=== PATIENT | male | born 1950 | race Caucasian/White ===

== ENCOUNTER 2023-09-11 12:00 | Outpatient (AMB) | payer BC, SELFPAY ==
--- NOTE | 2023-09-11 10:38 | HO.NEPHOV ---
HPI HPI Comments History of Present Illness Details 73-year-old man with a history of cirrhosis due to alcohol, diabetes mellitus and coronary disease was recently seen in the emergency room at [facility] for generalized weakness. Prior to stay in the hospital he had decreased appetite and poor p.o. intake for almost 4 days. He had fever and was given few doses of ibuprofen. When he was seen in the emergency room he had a serum creatinine of 1.4 mg/dL which was higher than his baseline of 0.9 mg/dL. All other tests were normal. He tested negative for COVID-19. He was given IV fluids and sent home. Subsequently creatinine increased to 1.5 mg/dL on 09/05/2023. Yesterday creatinine was 1.2 mg/dL. He has been referred for further evaluation renal insufficiency. He is to drink alcohol heavily. He continues to drink alcohol but usually 1 or maybe 2 drinks. He prefers Brett with Coke He is not on any Brett inhibitors. According to the family he has had relatively low blood pressure. And he also feels fatigued when he tries to walk. Sometimes he gets lightheaded when he has tries to stand up and walk. No syncopal episodes. For the last few days appetite is improved. No nausea or vomiting. No diarrhea. No shortness of breath. No palpitations. No edema. No urinary symptoms. No hematuria. [facility] Medical History Hypertension Heart disease Diabetes Abnormal colonoscopy Encounter for colonoscopy following colon polyp removal Surgical History History of cataract removal with insertion of prosthetic lens S/P vascular bypass Family History Mother No problems noted. Father Heart disease Vital Signs 09/11/23 12:04 Height 5 ft 11.5 in Weight 203 lb BMI 27.9 BP 120/68 Blood Pressure Location Lt brachial Position Sitting Pulse 65 Pulse Source Pulse Oximeter Pulse Oximetry (%) 96 Oxygen Delivery Method Room Air Physical Exam Vital Signs: Last Vital Signs Pulse 65 09/11/23 12:04 BP 120/68 09/11/23 12:04 Pulse Ox 96 09/11/23 12:04 Oxygen Delivery Method Room Air 09/11/23 12:04 BMI result Body Mass Index 27.9 Repeat blood pressure was 100/60. Sitting. Standing blood pressure was 100/60. Asymptomatic. Const General: comfortable Nutritional Appearance: well nourished Orientation/consciousness: patient oriented x3 HEENT Head: No normal to inspection Mouth: moist mucous membranes Neck Neck: Yes supple and Yes no JVD Resp Auscultation: clear to auscultation bilaterally, no rales and rub present Cardio Jugular venous distension: no JVD Palpation: no palpable S3 and no palpable S4 Heart sounds: no rubs GI Palpation (GI): Soft to palpation and nontender Percussion: No Fluid wave present General: Yes no CVA tenderness Back/Spine/Pelvis Back: no CVA tenderness Skin General skin exam: no rashes or lesions noted Neuro Other: Forgetful General: patient oriented x3 Extrem General: Yes no pedal edema and No clubbing Assessment & Plan Assessment & Plan (1) MARIBELL (acute kidney injury): Code(s): N17.9 - Acute kidney failure, unspecified Plan: MARIBELL was mostly clear due to hypoperfusion from significant volume depletion and hypotension. No significant proteinuria Glomerulonephritis or obstructive uropathy seem less likely. Renal function is slowly improving. Recommend to increase p.o. fluid intake and salt intake. Keep intake more than the output. Continue to avoid nephrotoxic agents including NSAIDs. Recheck renal panel in the next 7 days. If there is no significant improvement in the creatinine I will obtain a renal ultrasonogram. (2) Hypotension: Code(s): I95.9 - Hypotension, unspecified Plan: Hypotension in the setting of cirrhosis. He probably has peripheral vascular dilatation. I will check a serum cortisol levels and if they are normal I would consider adding midodrine to elevate his blood pressure. The fatigue is experiencing is most likely related to hypotension. (3) Cirrhosis: Code(s): K74.60 - Unspecified cirrhosis of liver Plan: Discussed up standing from alcohol. Orders: Orders Blood Urea Nitrogen Today N17.9 - Acute kidney failure, unspecified Electrolytes Today N17.9 - Acute kidney failure, unspecified Creatinine Today N17.9 - Acute kidney failure, unspecified Calcium Today N17.9 - Acute kidney failure, unspecified Cortisol Random Today N17.9 - Acute kidney failure, unspecified Coding Level of Care Code New Pt Level 5 (86079) Diagnoses MARIBELL (acute kidney injury) N17.9 Hypotension I95.9 Cirrhosis K74.60 Results Reviewed Results Reviewed: Hemoglobin 13.7. Platelets 292 K Sodium 137 potassium 4.2 CO2 27. BUN 11 creatinine 1.2. Obtain phosphorus 241 serum albumin 3.3 Urine microalbumin creatinine ratio of 59 Nephrology Results: No Data to Display
[2023-09-11 12:04] VITALS: BP 120/68; PULSE 65; O2SAT 96; BMI 27.9
== END 2023-09-11 12:35 | disposition home or self-care (01) ==
LOC: HO.HKAS 12:00
PROVIDERS: PCP Internal Medicine; Visit Provider Internal Medicine Hypertension Specialist
DX: N17.8 Other acute kidney failure (principal); I95.89 Other hypotension; K70.30 Alcoholic cirrhosis of liver without ascites; F10.988 Alcohol use, unspecified with other alcohol-induced disorder
CPT/HCPCS: 99204

== ENCOUNTER → 2023-09-11 12:00 | Outpatient (BNVA) | payer BC, SELFPAY | PROVIDERS: PCP Internal Medicine; Visit Provider Internal Medicine Hypertension Specialist ==

== ENCOUNTER 2023-09-18 11:53 | Outpatient (AMB) | payer BC, SELFPAY ==
[2023-09-18 12:02] VITALS: BP 104/62; PULSE 73; O2SAT 95; BMI 29.5
--- NOTE | 2023-09-18 12:02 | HO.NEPHOV_ITS ---
HPI HPI Comments History of Present Illness Details 73-year-old man with a history of cirrho sis due to alcohol, diabetes mellitus and coronary disease was recently seen in the emergency room at [facility] for generalized weakness. Prior to stay in the hospital he had decreased appetite and poor p.o. intake for almost 4 days. He had fever and was given few doses of ibuprofen. When he was seen in the emergency room he had a serum creatinine of 1.4 mg/dL which was higher than his baseline of 0.9 mg/dL. All other tests were normal. He tested negative for COVID-19. He was given IV fluids and sent home. Subsequently creatinine increased to 1.5 mg/dL on 09/05/2023. Yesterday creatinine was 1.2 mg/dL. He has been referred for further evaluation renal insufficiency. He is to drink alcohol heavily. He continues to drink alcohol but usually 1 or maybe 2 drinks. He prefers Brett with Coke He is not on any Brett inhibitors. According to the family he has had relatively low blood pressure. And he also feels fatigued when he tries to walk. Sometimes he gets lightheaded when he has tries to stand up and walk. No syncopal episodes. For the last few days appetite is improved. No nausea or vomiting. No diarrhea. No shortness of breath. No palpitations. No edema. No urinary symptoms. No hematuria. 09/18/23 Feels better but still feels weak. [facility] Medical History Hypertension Heart disease Diabetes Abnormal colonoscopy Encounter for colonoscopy following colon polyp removal Surgical History History of cataract removal with insertion of prosthetic lens S/P vascular bypass Family History Mother No problems noted. Father Heart disease Vital Signs 09/18/23 12:02 Height 5 ft 11.5 in Weight 214 lb 6 oz BMI 29.5 BP 104/62 Blood Pressure Location Lt brachial Position Sitting Pulse 73 Pulse Source Pulse Oximeter Pulse Oximetry (%) 95 Oxygen Delivery Method Room Air Physical Exam Vital Signs: Last Vital Signs Pulse 73 09/18/23 12:02 BP 104/62 09/18/23 12:02 Pulse Ox 95 09/18/23 12:02 Oxygen Delivery Method Room Air 09/18/23 12:02 BMI result Body Mass Index 29.5 Repeat blood pressure was 100/60. Sitting. Standing blood pressure was 100/60. Asymptomatic. Const General: comfortable Nutritional Appearance: well nourished Orientation/consciousness: patient oriented x3 HEENT Head: No normal to inspection Mouth: moist mucous membranes Neck Neck: Yes supple and Yes no JVD Resp Auscultation: clear to auscultation bilaterally, no rales and rub present Cardio Jugular venous distension: no JVD Palpation: no palpable S3 and no palpable S4 Heart sounds: no rubs GI Palpation (GI): Soft to palpation and nontender Percussion: No Fluid wave present General: Yes no CVA tenderness Back/Spine/Pelvis Back: no CVA tenderness Skin General skin exam: no rashes or lesions noted Neuro Other: Forgetful General: patient oriented x3 Extrem General: Yes no pedal edema and No clubbing Assessment & Plan Assessment & Plan (1) MARIBELL (acute kidney injury): Code(s): N17.9 - Acute kidney failure, unspecified Plan: MARIBELL was mostly clear due to hypoperfusion from significant volume depletion and hypotension. No significant proteinuria Glomerulonephritis or obstructive uropathy seem less likely based on bland urine findings. Renal function is slowly improving and back to baseline. Recommend to increase p.o. fluid intake and salt intake. Keep intake more than the output. Continue to avoid nephrotoxic agents including NSAIDs. (2) Hypotension: Code(s): I95.9 - Hypotension, unspecified Plan: Hypotension in the setting of cirrhosis. He probably has peripheral vasodilatation. serum cortisol levels is normal If he has orthostatic change, would consider adding midodrine to elevate his blood pressure. (3) Cirrhosis: Code(s): K74.60 - Unspecified cirrhosis of liver Plan: Discussed avoiding alcohol. Coding Level of Care Code Est Pt Level 4 (17658) Diagnoses MARIBELL (acute kidney injury) N17.9 Hypotension I95.9 Cirrhosis K74.60 Results Reviewed Nephrology Results: No Data to Display
== END 2023-09-18 12:14 | disposition home or self-care (01) ==
PROVIDERS: PCP Internal Medicine; Visit Provider Internal Medicine Hypertension Specialist
DX: N17.9 Acute kidney failure, unspecified (principal); I95.9 Hypotension, unspecified; K74.60 Unspecified cirrhosis of liver
CPT/HCPCS: 99214

== ENCOUNTER → 2023-09-18 11:53 | Outpatient (BNVA) | payer BC, SELFPAY | PROVIDERS: PCP Internal Medicine; Visit Provider Internal Medicine Hypertension Specialist ==

== ENCOUNTER 2024-01-15 11:22 | Outpatient (AMB) | payer BC, SELFPAY ==
--- NOTE | 2024-01-15 11:22 | HO.NEPHOV ---
HPI HPI Comments History of Present Illness Details 73-year-old man with a history of cirrhosis due to alcohol, diabetes mellitus and coronary disease was recently seen in the emergency room at [facility] for generalized weakness. Prior to stay in the hospital he had decreased appetite and poor p.o. intake for almost 4 days. He had fever and was given few doses of ibuprofen. When he was seen in the emergency room he had a serum creatinine of 1.4 mg/dL which was higher than his baseline of 0.9 mg/dL. All other tests were normal. He tested negative for COVID-19. He was given IV fluids and sent home. Subsequently creatinine increased to 1.5 mg/dL on 09/05/2023. Yesterday creatinine was 1.2 mg/dL. He has been referred for further evaluation renal insufficiency. He is to drink alcohol heavily. He continues to drink alcohol but usually 1 or maybe 2 drinks. He prefers Brett with Coke He is not on any Brett inhibitors. According to the family he has had relatively low blood pressure. And he also feels fatigued when he tries to walk. Sometimes he gets lightheaded when he has tries to stand up and walk. No syncopal episodes. For the last few days appetite is improved. No nausea or vomiting. No diarrhea. No shortness of breath. No palpitations. No edema. No urinary symptoms. No hematuria. 09/18/23 Feels better but still feels weak. 01/15/2024. Recently there has been a bump in serum creatinine. He has been started on naltrexone few weeks ago. Continues to feel weak and sleepy. Blood pressure remains low [facility] Medical History Hypertension Heart disease Diabetes Abnormal colonoscopy Encounter for colonoscopy following colon polyp removal Surgical History History of cataract removal with insertion of prosthetic lens S/P vascular bypass Family History Mother No problems noted. Father Heart disease Vital Signs 01/15/24 11:23 01/15/24 11:40 Height 5 ft 11.5 in Weight 183 lb BMI 25.2 BP 106/64 80/60 L Blood Pressure Location Lt brachial Lt brachial Position Sitting Standing Pulse 86 Pulse Source Pulse Oximeter Pulse Oximetry (%) 97 Oxygen Delivery Method Room Air Physical Exam Vital Signs: Last Vital Signs Pulse 86 01/15/24 11:23 BP 80/60 L 01/15/24 11:40 Pulse Ox 97 01/15/24 11:23 Oxygen Delivery Method Room Air 01/15/24 11:23 BMI result Body Mass Index 25.2 Repeat blood pressure was 100/60. Sitting. Standing blood pressure was 100/60. Asymptomatic. Const General: comfortable Nutritional Appearance: well nourished Orientation/consciousness: patient oriented x3 HEENT Head: No normal to inspection Mouth: moist mucous membranes Neck Neck: Yes supple and Yes no JVD Resp Auscultation: clear to auscultation bilaterally, no rales and rub present Cardio Jugular venous distension: no JVD Palpation: no palpable S3 and no palpable S4 Heart sounds: no rubs GI Palpation (GI): Soft to palpation and nontender Percussion: No Fluid wave present General: Yes no CVA tenderness Back/Spine/Pelvis Back: no CVA tenderness Skin General skin exam: no rashes or lesions noted Neuro Other: Forgetful General: patient oriented x3 Extrem General: Yes no pedal edema and No clubbing Assessment & Plan Assessment & Plan (1) MARIBELL (acute kidney injury): Code(s): N17.9 - Acute kidney failure, unspecified Plan: MARIBELL was mostly due to hypoperfusion from significant volume depletion and hypotension. No significant proteinuria Glomerulonephritis or obstructive uropathy seem less likely based on bland urine findings. Recommend to increase p.o. fluid intake and salt intake. Keep intake more than the output. Continue to avoid nephrotoxic agents including NSAIDs. We will add midodrine to optimize blood pressure and improve renal perfusion. (2) Hypotension: Code(s): I95.9 - Hypotension, unspecified Plan: Hypotension in the setting of cirrhosis. He probably has peripheral vasodilatation. serum cortisol levels is normal Continues to have orthostatic change, I am adding midodrine 2.5 mg to elevate his blood pressure. We will titrate the dose as needed. He will benefit from GUZMAN stockings and had an elevation (3) Cirrhosis: Code(s): K74.60 - Unspecified cirrhosis of liver Plan: Currently off alcohol. Keep spironolactone and furosemide Orders: Orders Basic Metabolic Panel 3 Weeks I95.9 - Hypotension, unspecified, N17.9 - Acute kidney failure, unspecified Medications: New midodrine 2.5 mg PO DAILY 30 tabs 3RF Coding Level of Care Code Est Pt Level 4 (66169) Diagnoses MARIBELL (acute kidney injury) N17.9 Hypotension I95.9 Cirrhosis K74.60 Results Reviewed Results Reviewed: Labs reviewed Nephrology Results: No Data to Display
[2024-01-15 11:23] VITALS: BP 106/64; PULSE 86; O2SAT 97; BMI 25.2
[2024-01-15 11:40] VITALS: BP 80/60
== END 2024-01-15 11:48 | disposition home or self-care (01) ==
PROVIDERS: PCP Internal Medicine; Visit Provider Internal Medicine Hypertension Specialist
DX: N17.9 Acute kidney failure, unspecified (principal); I95.9 Hypotension, unspecified; K74.60 Unspecified cirrhosis of liver
CPT/HCPCS: 99214

== ENCOUNTER → 2024-01-15 11:22 | Outpatient (BNVA) | payer BC, SELFPAY | PROVIDERS: PCP Internal Medicine; Visit Provider Internal Medicine Hypertension Specialist ==

== ENCOUNTER 2024-03-18 11:18 | Outpatient (AMB) | payer BC, SELFPAY ==
[2024-03-18 11:22] VITALS: BP 104/60; PULSE 94; O2SAT 96; BMI 26.0
--- NOTE | 2024-03-18 11:22 | HO.NEPHOV_ITS ---
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 Accompanied by: Spouse Allergies No Known Allergies Allergy (Verified 03/18/24 11:23) Medication List - Last Reconciled 03/18/24 by Perez Montero MD ascorbic acid (vitamin C) 100 mg PO DAILY aspirin 81 mg PO DAILY cholecalciferol (vitamin D3) 25 mcg PO DAILY empagliflozin 10 mg PO DAILY ferrous sulfate 324 mg PO DAILY furosemide 20 mg PO DAILY metformin 1,000 mg PO BID midodrine 2.5 mg PO DAILY mufuggrnnzsz-ztlxrlec-gchbep 1 tab PO DAILY naltrexone 50 mg PO DAILY pantoprazole 40 mg PO DAILY rosuvastatin mg PO DAILY spironolactone 50 mg PO DAILY thiamine HCl (vitamin B1) 100 mg PO DAILY vitamins A,C,Q-zuxf-tarbkx 2,148 mcg-113 mg-45 mg-17.4mg (PreserVision AREDS) 2 tabs PO ONCE HPI Comments Details: 73-year-old man with a history of cirrhosis due to alcohol, diabetes mellitus and coronary disease was recently seen in the emergency room at [facility] for generalized weakness. Prior to stay in the hospital he had decreased appetite and poor p.o. intake for almost 4 days. He had fever and was given few doses of ibuprofen. When he was seen in the emergency room he had a serum creatinine of 1.4 mg/dL which was higher than his baseline of 0.9 mg/dL. All other tests were normal. He tested negative for COVID-19. He was given IV fluids and sent home. Subsequently creatinine increased to 1.5 mg/dL on 09/05/2023. Yesterday creatinine was 1.2 mg/dL. He has been referred for further evaluation renal insufficiency. He is to drink alcohol heavily. He continues to drink alcohol but usually 1 or maybe 2 drinks. He prefers Brett with Coke He is not on any Brett inhibitors. According to the family he has had relatively low blood pressure. And he also feels fatigued when he tries to walk. Sometimes he gets lightheaded when he has tries to stand up and walk. No syncopal episodes. For the last few days appetite is improved. No nausea or vomiting. No diarrhea. No shortness of breath. No palpitations. No edema. No urinary symptoms. No hematuria. 09/18/23 Feels better but still feels weak. 01/15/2024. Recently there has been a bump in serum creatinine. He has been started on naltrexone few weeks ago. Continues to feel weak and sleepy. Blood pressure remains low 03/18/24 . Recently ran out of spironolactone for almost 2 weeks. He is started taking spironolactone again. In the meantimee has gained few lb. He is scheduled to have a paracenesis. He is still on midodrine which seems to be helping. No specific complaints today: [facility] Medical History Hypertension Heart disease Diabetes Abnormal colonoscopy Encounter for colonoscopy following colon polyp removal Surgical History History of cataract removal with insertion of prosthetic lens S/P vascular bypass Family History Mother No problems noted. Father Heart disease Physical Exam Vital Signs: Last Vital Signs Pulse 94 03/18/24 11:22 BP 104/60 03/18/24 11:22 Pulse Ox 96 03/18/24 11:22 Oxygen Delivery Method Room Air 03/18/24 11:22 BMI result Body Mass Index 26.0 Repeat blood pressure was 100/60. Sitting. Standing blood pressure was 100/60. Asymptomatic. Const General: comfortable Nutritional Appearance: well nourished Orientation/consciousness: patient oriented x3 HEENT Head: No normal to inspection Mouth: moist mucous membranes Neck Neck: Yes supple and Yes no JVD Resp Auscultation: clear to auscultation bilaterally and no rales Cardio Jugular venous distension: no JVD Palpation: no palpable S3 and no palpable S4 Heart sounds: no rubs GI Inspection: Yes other (Umbilical hernia present fully reducible nontender.) Palpation (GI): Soft to palpation, nontender and Ascites present Percussion: No Fluid wave present General: Yes no CVA tenderness Back/Spine/Pelvis Back: no CVA tenderness Skin General skin exam: no rashes or lesions noted Neuro Other: Forgetful General: patient oriented x3 Extrem General: Yes no pedal edema and No clubbing Results Reviewed Results Reviewed: 03/05/2024. Serum creatinine 1.2 serum lytes normal Nephrology Results: No Data to Display Assessment & Plan Assessment & Plan (1) MARIBELL (acute kidney injury): Code(s): N17.9 - Acute kidney failure, unspecified Category: Medical Plan: Due To hypoperfusion MARIBELL has resolved. Creatinine is backo 1.2. (2) Hypotension: Code(s): I95.9 - Hypotension, unspecified Category: Medical Plan: Hypotension in the setting of cirrhosis. He probably has peripheral vasodilatation. serum cortisol levels is normal Continues to have orthostatic change, I shall continue midodrine 2.5 mg to elevate his blood pressure. We will titrate the dose as needed. He will benefit from GUZMAN stockings and had an elevation (3) Cirrhosis: Code(s): K74.60 - Unspecified cirrhosis of liver Category: Medical Plan: Currently off alcohol. Keep spironolactone and furosemide Orders: Orders Basic Metabolic Panel 6 Months I95.9 - Hypotension, unspecified, K74.60 - Unspecified cirrhosis of liver Coding Level of Care Code Est Pt Level 4 (46595) Diagnoses MARIBELL (acute kidney injury) N17.9 Hypotension I95.9 Cirrhosis K74.60
== END 2024-03-18 11:37 | disposition home or self-care (01) ==
PROVIDERS: PCP Internal Medicine; Visit Provider Internal Medicine Hypertension Specialist
DX: N17.9 Acute kidney failure, unspecified (principal); I95.9 Hypotension, unspecified; K74.60 Unspecified cirrhosis of liver
CPT/HCPCS: 99214

== ENCOUNTER → 2024-03-18 11:18 | Outpatient (BNVA) | payer BC, SELFPAY | PROVIDERS: PCP Internal Medicine; Visit Provider Internal Medicine Hypertension Specialist ==

== ENCOUNTER 2024-09-16 08:38 | Outpatient (AMB) | payer BC, SELFPAY ==
[2024-09-16 08:44] VITALS: BP 108/60; PULSE 93; O2SAT 98; BMI 24.3
--- NOTE | 2024-09-16 08:44 | HO.NEPHOV_ITS ---
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 Accompanied by: Spouse Allergies No Known Allergies Allergy (Verified 09/16/24 08:47) Medication List - Last Reconciled 09/16/24 by Perez Montero MD aspirin 81 mg PO DAILY cholecalciferol (vitamin D3) 25 mcg PO DAILY empagliflozin 10 mg PO DAILY ferrous sulfate 324 mg PO DAILY furosemide 20 mg PO DAILY metformin 1,000 mg PO BID midodrine 10 mg PO TID gpjmumizmvpu-prxxretl-pnphwn 1 tab PO DAILY ondansetron 4 mg PO BID PRN pantoprazole 40 mg PO DAILY rosuvastatin mg PO DAILY spironolactone 50 mg PO DAILY vitamins A,C,G-jxpd-vqjitg 2,148 mcg-113 mg-45 mg-17.4mg (PreserVision AREDS) 2 tabs PO ONCE HPI Comments Details: 73-year-old man with a history of cirrhosis due to alcohol, diabetes mellitus and coronary disease was recently seen in the emergency room at [facility] for generalized weakness. Prior to stay in the hospital he had decreased appetite and poor p.o. intake for almost 4 days. He had fever and was given few doses of ibuprofen. When he was seen in the emergency room he had a serum creatinine of 1.4 mg/dL which was higher than his baseline of 0.9 mg/dL. All other tests were normal. He tested negative for COVID-19. He was given IV fluids and sent home. Subsequently creatinine increased to 1.5 mg/dL on 09/05/2023. Yesterday creatinine was 1.2 mg/dL. He has been referred for further evaluation renal insufficiency. He is to drink alcohol heavily. He continues to drink alcohol but usually 1 or maybe 2 drinks. He prefers Brett with Coke He is not on any Brett inhibitors. According to the family he has had relatively low blood pressure. And he also f eels fatigued when he tries to walk. Sometimes he gets lightheaded when he has tries to stand up and walk. No syncopal episodes. For the last few days appetite is improved. No nausea or vomiting. No diarrhea. No shortness of breath. No palpitations. No edema. No urinary symptoms. No hematuria. 09/18/23 Feels better but still feels weak. 01/15/2024. Recently there has been a bump in serum creatinine. He has been started on naltrexone few weeks ago. Continues to feel weak and sleepy. Blood pressure remains low 03/18/24;Recently ran out of spironolactone for almost 2 weeks. He is started taking spironolactone again. In the meantimee has gained few lb. He is scheduled to have a paracenesis. He is still on midodrine which seems to be helping. No specific complaints today: 09/16/24 Had paracenthesis. Back on Lasix s/p Endoscopy - No varices reported. Stopped drinking alcohol 2 months ago! [facility] Medical History Hypertension Heart disease Diabetes Abnormal colonoscopy Encounter for colonoscopy following colon polyp removal Surgical History History of cataract removal with insertion of prosthetic lens S/P vascular bypass Family History Mother No problems noted. Father Heart disease Physical Exam Vital Signs: Last Vital Signs Pulse 93 09/16/24 08:44 BP 108/60 09/16/24 08:44 Pulse Ox 98 09/16/24 08:44 Oxygen Delivery Method Room Air 09/16/24 08:44 BMI result Body Mass Index 24.3 Comfortable Neck supple no JVD. Lungs entry equal no rales. Heart S1-S2 heard no gallop or rub. Abdomen soft ;Distended; Fluid thrill + Umbilical hernia- reducible Neuro alert awake oriented. No asterixis. Extremities trace edema. Results Reviewed Results Reviewed: 03/05/2024. Serum creatinine 1.2 serum lytes normal 09/08/24 Cr 1.32 Nephrology Results: No Data to Display Assessment & Plan Assessment & Plan (1) MARIBELL (acute kidney injury): Code(s): N17.9 - Acute kidney failure, unspecified Category: Medical Plan: Due To hypoperfusion MARIBELL has resolved. Creatinine is back to 1.2 to 1.3 (2) Hypotension: Code(s): I95.9 - Hypotension, unspecified Category: Medical Plan: Hypotension in the setting of cirrhosis. He probably has peripheral vasodilatation. Keep Midodrine serum cortisol levels is normal Continues to have orthostatic change, I shall continue midodrine 2.5 mg to elevate his blood pressure. We will titrate the dose as needed. He will benefit from GUZMAN stockings and had an elevation (3) Cirrhosis: Code(s): K74.60 - Unspecified cirrhosis of liver Category: Medical Plan: Currently off alcohol. Keep spironolactone and furosemide Paracenthesis as needed Orders: Orders Comprehensive Met. Panel 5 Months K74.60 - Unspecified cirrhosis of liver, N17.9 - Acute kidney failure, unspecified Complete Blood Count no Diff 5 Months K74.60 - Unspecified cirrhosis of liver, N17.9 - Acute kidney failure, unspecified Coding Level of Care Code Est Pt Level 4 (75409) Diagnoses MARIBELL (acute kidney injury) N17.9 Hypotension I95.9 Cirrhosis K74.60
== END 2024-09-16 09:04 | disposition home or self-care (01) ==
PROVIDERS: PCP Internal Medicine; Visit Provider Internal Medicine Hypertension Specialist
DX: N17.9 Acute kidney failure, unspecified (principal); I95.9 Hypotension, unspecified; K74.60 Unspecified cirrhosis of liver
CPT/HCPCS: 99214

== ENCOUNTER → 2024-09-16 08:38 | Outpatient (BNVA) | payer BC, SELFPAY | PROVIDERS: PCP Internal Medicine; Visit Provider Internal Medicine Hypertension Specialist ==

== ENCOUNTER 2025-03-03 08:49 | Outpatient (AMB) | payer BC, SELFPAY ==
[2025-03-03 08:53] VITALS: BP 96/52; PULSE 83; O2SAT 96; BMI 23.4
--- NOTE | 2025-03-03 08:53 | HO.NEPHOV_ITS ---
Vital Signs 03/03/25 08:53 Height 5 ft 11.5 in Weight 170 lb BMI 23.4 BP 96/52 L Blood Pressure Location Lt brachial Position Sitting Pulse 83 Pulse Source Pulse Oximeter Pulse Oximetry (%) 96 Oxygen Delivery Method Room Air Intake Visit Reasons: May follow up w/labs [employer] Operator Required: No Accompanied by: Spouse Allergies No Known Allergies Allergy (Verified 03/03/25 08:56) Medication List - Last Reconciled 03/03/25 by Perez Montero MD aspirin 81 mg PO DAILY cholecalciferol (vitamin D3) 25 mcg PO DAILY empagliflozin (Jardiance) 25 mg PO DAILY ferrous sulfate 324 mg PO DAILY furosemide 20 mg PO DAILY metformin 1,000 mg PO BID midodrine 10 mg PO TID mkgqohraiavd-ijievvue-lxrqgu 1 tab PO DAILY ondansetron 4 mg PO BID PRN pantoprazole 40 mg PO DAILY rosuvastatin mg PO DAILY spironolactone 50 mg PO BID vitamins A,C,I-nfjq-knenun 2,148 mcg-113 mg-45 mg-17.4mg (PreserVision AREDS) 2 tabs PO ONCE HPI Comments Details: Elderly man with a history of cirrhosis due to alcohol, diabetes mellitus and coronary disease was recently seen in the emergency room at [facility] for generalized weakness. Prior to stay in the hospital he had decreased appetite and poor p.o. intake for almost 4 days. He had fever and was given few doses of ibuprofen. When he was seen in the emergency room he had a serum creatinine of 1.4 mg/dL which was higher than his baseline of 0.9 mg/dL. All other tests were normal. He tested negative for COVID-19. He was given IV fluids and sent home. Subsequently creatinine increased to 1.5 mg/dL on 09/05/2023. Yesterday creatinine was 1.2 mg/dL. He has been referred for further evaluation renal insufficiency. He is to drink alcohol heavily. He continues to drink alcohol but usually 1 or maybe 2 drinks. He prefers Brett with Coke He is not on any Brett inhibitors. According to the family he has had relatively low blood pressure. And he also feels fatigued when he tries to walk. Sometimes he gets lightheaded when he has tries to stand up and walk. No syncopal episodes. For the last few days appetite is improved. No nausea or vomiting. No diarrhea. No shortness of breath. No palpitations. No edema. No urinary symptoms. No hematuria. 09/18/23 Feels better but still feels weak. 01/15/2024. Recently there has been a bump in serum creatinine. He has been started on naltrexone few weeks ago. Continues to feel weak and sleepy. Blood pressure remains low 03/18/24;Recently ran out of spironolactone for almost 2 weeks. He is started taking spironolactone again. In the meantimee has gained few lb. He is scheduled to have a paracenesis. He is still on midodrine which seems to be helping. No specific complaints today: 09/16/24 Had paracenthesis. Back on Lasix s/p Endoscopy - No varices reported. Stopped drinking alcohol 2 months ago! 03/03/25 75-year-old male presenting with concerns related to recovery from recent hernia surgery and persistent tiredness linked to anemia. Notably, he underwent a surgical procedure in December to address a bowel obstruction caused by a large hernia, and since then, symptoms of fatigue have been marked. Lab results from January indicated some improvement in hemoglobin levels, although recent tests show a significant drop, likely impacting his energy levels. Anemia appears to be primarily due to low iron levels, and there is an existing concern about potential impacts from his surgery and the need for continued management. Furthermore, there is a history of kidney impairment evident from variances in creatinine levels in past evaluations. Previous laboratory assessments indicated elevated ammonia levels managed with lactulose, ensuring regular bowel activity and ammonia excretion. Ongoing monitoring of renal function, given his history, remains an area of focus, with renal parameter optimization prioritized. [facility], [facility] Medical History (Updated 03/03/25 @ 09:12 by Perez Montero MD) Hypertension Heart disease Diabetes Abnormal colonoscopy Encounter for colonoscopy following colon polyp removal Surgical History (Updated 03/03/25 @ 08:56 by JOEL Mahoney) History of hernia surgery (~12/2024) History of cataract removal with insertion of prosthetic lens S/P vascular bypass Family History Mother No problems noted. Father Heart disease Physical Exam Vital Signs: Last Vital Signs Pulse 83 03/03/25 08:53 BP 96/52 L 03/03/25 08:53 Pulse Ox 96 03/03/25 08:53 Oxygen Delivery Method Room Air 03/03/25 08:53 BMI result Body Mass Index 23.4 Comfortable Neck supple no JVD. Lungs entry equal no rales. Heart S1-S2 heard no gallop or rub. Abdomen soft ;Distended; Fluid thrill + Umbilical hernia- reducible Neuro alert awake oriented. No asterixis. Extremities trace edema. Results Reviewed Results Reviewed: REcent C 1.14 in February 2025 HgB 9.1 Nephrology Results: No Data to Display Assessment & Plan Assessment & Plan (1) MARIBELL (acute kidney injury): Code(s): N17.9 - Acute kidney failure, unspecified Category: Medical Plan: Due To hypoperfusion MARIBELL has resolved. Creatinine is back to 1.1 to 1.2 (2) Hypotension: Code(s): I95.9 - Hypotension, unspecified Category: Medical Plan: Hypotension in the setting of cirrhosis. He probably has peripheral vasodilatation. Keep Midodrine serum cortisol levels is normal Continues to have orthostatic change, I shall continue midodrine 2.5 mg to elevate his blood pressure. We will titrate the dose as needed. He will benefit from GUZMAN stockings and had an elevation (3) Cirrhosis: Code(s): K74.60 - Unspecified cirrhosis of liver Category: Medical Plan: Currently off alcohol. Keep spironolactone and furosemide Paracenthesis as needed NH3 was 146 in January 2025- On Lactulose Avoid constipation (4) Anemia: Code(s): D64.9 - Anemia, unspecified Category: Medical Plan: Multifactorial HgB down to 9.1 SPEP shows polyclonal gammopathy Follow with PCP Orders: Orders Complete Blood Count no Diff 6 Months I95.9 - Hypotension, unspecified, N17.9 - Acute kidney failure, unspecified Basic Metabolic Panel 6 Months I95.9 - Hypotension, unspecified, N17.9 - Acute kidney failure, unspecified Coding Level of Care Code Est Pt Level 4 (04622) Diagnoses MARIBELL (acute kidney injury) N17.9 Hypotension I95.9 Cirrhosis K74.60 Anemia D64.9
--- OUTSIDE RECORDS SUMMARY | 2025-03-03 09:09 | XMS_ITS | Clinical Summary ---
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 electronically signed by: Bev Syed MD on 01/17/2025 19:34:56 Narrative 01/17/2025 7:34 PM EDT INDICATION: Abdominal distension CT abdomen and pelvis with contrast Comparison: None Findings: No consolidation at the lung bases. Cholelithiasis. There is gallbladder wall thickening. Cirrhotic liver. Unremarkable bladder. The other solid organs are unremarkable. Wall thickening of the distal esophagus may indicate esophagitis. Gastric distention. Oral contrast reaches the proximal small bowel. The small bowel is dilated, measuring up to 3.7 cm. There is a discrete transition point within an umbilical hernia. The distal small bowel is decompressed. No pneumatosis or portal venous gas. Wall thickening of the proximal colon could be secondary to increased hydrostatic pressure from portal hypertension. A normal appendix is identified. Colonic diverticulosis. No aneurysm. Severe calcified atherosclerotic disease. No lymphadenopathy. Moderate ascites. No acute osseous abnormality. Procedure Note Bev Allen MD - 01/17/2025 INDICATION: Abdominal distension CT abdomen and pelvis with contrast Comparison: None Findings: No consolidation at the lung bases. Cholelithiasis. There is gallbladder wall thickening. Cirrhotic liver. Unremarkable bladder. The other solid organs are unremarkable. Wall thickening of the distal esophagus may indicate esophagitis.Gastric distention. Oral contrast reaches the proximal small bowel. The small bowel is dilated, measuring up to 3.7 cm. There is a discrete transition point within an umbilical hernia. The distal small bowel isdecompressed. No pneumatosis or portal venous gas. Wall thickening of the proximalcolon could be secondary to increased hydrostatic pressure from portal hypertension. A normal appendix is identified. Colonic diverticulosis. No aneurysm. Severe calcified atherosclerotic disease. No lymphadenopathy. Moderate ascites. No acute osseous abnormality. IMPRESSION: Impression: High-grade small bowel obstruction. The transition point is within an umbilical hernia. No necrosis. Cirrhosis. Moderate ascites. Cholelithiasis. Wall thickening of the gallbladder is likely secondaryto systemic pathology such as liver pathology. Acute cholecystitis is considered less likely, however can be further evaluated with a right upper quadrant ultrasound or HIDA scan. This document has been electronically signed by: Bev Syed MD on 01/17/2025 19:34:56 Bola Huston MD IMG CT PROCEDURES Edited Result - Final * (ABNORMAL) Prothrombin time with INR (01/17/2025 6:28 PM EDT) Protime 16.1(H) 10.6 - 13.9 sec LAB COAGULATION METHOD 01/17/2025 7:00 PM EDT [facility] INR 1.3 LAB COAGULATION METHOD 01/17/2025 7:00 PM EDT [facility] Blood Venous blood specimen / Unknown Venipuncture / Unknown 01/17/2025 6:28 PM EDT 01/17/2025 6:49 PM EDT Betsy [facility] LAB BLOOD ORDERABLES Final R esult [facility] [address] [place] [address], [place] [phone] * (ABNORMAL) Lactate (01/17/2025 5:55 PM EDT) [facility] Lactate 4.3(HH) 0.4 - 2.0 mmol/L LAB CHEMISTRY METHOD 01/17/2025 6:54 PM EDT [facility] Blood Venous blood specimen / Unknown Venipuncture / Unknown 01/17/2025 5:55 PM EDT 01/17/2025 6:23 PM EDT us Bola Huston MD LAB BLOOD ORDERABLES Erika l Result Performing Organization Address City/[facility]/ZIP Co de Phone Number [facility] [address] [place] [address], [place] [phone] * Lipase (01/17/2025 5:23 PM EDT) [facility] Lipase 23 13 - 75 unit/L LAB CHEMISTRY METHOD 01/17/2025 6:04 PM EDT [facility] Blood Venous blood specimen / Unknown Venipuncture / Unknown 01/17/2025 5:23 PM EDT 01/17/2025 5:36 PM EDT us Bola Huston MD LAB BLOOD ORDERABLES Erika l Result [facility] [address] [place] [address], [place] [phone] * (ABNORMAL) Hemoglobin A1c (01/17/2025 5:23 PM EDT) [facility] Hemoglobin A1C 7.5(H) <6.5 % LAB CHEMISTRY METHOD 01/18/2025 11:36 AM EDT [facility] Mean Bld Glu Estim. 169 mg/dL LAB CHEMISTRY METHOD 01/18/2025 11:36 AM EDT [facility] Blood Venous blood specimen / Unknown Venipuncture / Unknown 01/17/2025 5:23 PM EDT 01/17/2025 5:36 PM EDT Sue [facility] LAB BLOOD ORDERABLES Fi nal Result Performing Organization Address [facility]/ZIP Co de Phone Number [facility] [address] [place] [address], [place] [phone] * Albumin (01/17/2025 5:23 PM EDT) Albumin 3.5 3.2 - 5.0 g/dL LAB CHEMISTRY METHOD 01/17/2025 6:17 PM EDT [facility] Blood Venous blood specimen / Unknown Venipuncture / Unknown 01/17/2025 5:23 PM EDT 01/17/2025 5:36 PM EDT Betsy [facility]IN[facility] LAB BLOOD ORDERABLES Final R esult Performing Organization Address [facility] de Phone Number [facility] [address] [place] [address], [place] [phone] * US Abdomen Complete (12/15/2024 9:15 AM EDT) Anatomical Region Laterality Modality Body Ultrasound 12/15/2024 9:18 AM EDT Impressions 12/15/2024 9:20 AM EDT 1. ??Findings consistent with cirrhosis. ??No focal liver lesion. ??Moderate air and hepatic ascites. ??Mild splenomegaly. 2. ??Cholelithiasis. -------- FINAL REPORT -------- Dictated By: Huan Alonso Dictated Date: 12/15/2024 09:18 ET Assigned Physician: Huan Alonso Reviewed and Electronically Signed By: Huan Alonso Signed Date: 12/15/2024 09:20 ET Workstation ID: [id number] Transcribed By: Self Edit Transcribed Date: 12/15/2024 09:18 ET Narrative 12/15/2024 9:20 AM EDT PROCEDURE: Ultrasound of the abdomen. HISTORY: Abdominal distension Screening for hepatoma in patient with cirrhosis. COMPARISON: 02/13/2024. TECHNIQUE: Grayscale, color Doppler, and spectral Doppler ultrasound evaluation of the abdomen. FINDINGS: Liver: Coarsened echotexture with a nodular contour. ??No focal lesion. ??Normal flow in the main portal vein. ??Moderate perihepatic ascites. Biliary: There is an 11 mm stone in the neck of the gallbladder. ??No gallbladder wall thickening or pericholecystic fluid.. ??Negative sonographic Mukherjee sign. Pancreas: Obscured by bowel gas. Kidneys: Normal size. ??No focal lesion or hydronephrosis. Spleen: Enlarged, measuring up to 13.3 cm. Vasculature: Visualized portions of the aorta and IVC are normal. Other: Incidental note of a 2 cm fat-containing paraumbilical hernia. Procedure Note Huan Alonso MD - 12/15/2024 PROCEDURE: Ultrasound of the abdomen. HISTORY: Abdominal distension Screening for hepatoma in patient with cirrhosis. COMPARISON: 02/13/2024. TECHNIQUE: Grayscale, color Doppler, and spectral Doppler ultrasoundevaluation of the abdomen. FINDINGS: Liver: Coarsened echotexture with a nodular contour. No focal lesion.Normal flow in the main portal vein. Moderate perihepatic ascites. Biliary: There is an 11 mm stone in the neck of the gallbladder. Nogallbladder wall thickening or pericholecystic fluid.. Negativesonographic Mukherjee sign. Pancreas: Obscured by bowel gas. Kidneys: Normal size. No focal lesion or hydronephrosis. Spleen: Enlarged, measuring up to 13.3 cm. Vasculature: Visualized portions of the aorta and IVC are normal. Other: Incidental note of a 2 cm fat-containing paraumbilical hernia. IMPRESSION: 1. Findings consistent with cirrhosis. No focal liver lesion. Moderateair and hepatic ascites. Mild splenomegaly. 2. Cholelithiasis. -------- FINAL REPORT -------- Dictated By: Huan Alonso Dictated Date: 12/15/2024 09:18 ET Assigned Physician: Huan Alonso Reviewed and Electronically Signed By: Huan Alonso Signed Date: 12/15/2024 09:20 ET Workstation ID: [id number] Transcribed By: Self Edit Transcribed Date: 12/15/2024 09:18 ET Cain Lam MD [facility] PROCEDURES Final Result from Last 3 Months Insurance [facility] MEDICARE Advance Directives Documents on File Type Date Recorded Patient Dancing Instructor Expl anation Advance Directives and Living Will 01/21/2025 9:41 AM Christian Vazquez Health Care Proxy * Full Code - Default (Latest Code Status on File) Date Activated Date Inactivated Comments 01/17/2025 8:22 PM 01/20/2025 5:56 PM This is orde r is used when code status has not been discussed with the patient, or code status is otherwise unknown/unconfirmed To update the patient's code status, place a code status order. Do not modify or discontinue any currently active code status orders. Healthcare Agents on File Name Relationship Healthcare Agent Relationshi p Communication Christian Vazquez Spouse Health Care Agent Care Teams Black[employer] Paver Operator Relationship Specialty Start Date End Date Neftaly Cristina MD [address] [place] [address] PCP - General Internal Medicine 05/24/22
== END 2025-03-03 09:14 | disposition home or self-care (01) ==
LOC: HO.HKAS 08:50
PROVIDERS: PCP Internal Medicine; Visit Provider Internal Medicine Hypertension Specialist
DX: N17.9 Acute kidney failure, unspecified (principal); I95.9 Hypotension, unspecified; K74.60 Unspecified cirrhosis of liver; D64.9 Anemia, unspecified
CPT/HCPCS: 99214

== ENCOUNTER → 2025-03-03 08:49 | Outpatient (BNVA) | payer BC, SELFPAY | PROVIDERS: PCP Internal Medicine; Visit Provider Internal Medicine Hypertension Specialist ==

== ENCOUNTER 2025-09-15 09:05 | Outpatient (AMB) | payer BC, SELFPAY ==
[2025-09-15 09:17] VITALS: BP 110/60; PULSE 88; O2SAT 98; BMI 22.8
--- NOTE | 2025-09-15 09:17 | HO.NEPHOV ---
Vital Signs 09/15/25 09:17 Height 5 ft 11.5 in Weight 166 lb BMI 22.8 BP 110/60 Blood Pressure Location Lt brachial Position Sitting Pulse 88 Pulse Source Pulse Oximeter Pulse Oximetry (%) 98 Oxygen Delivery Method Room Air Intake Visit Reasons: 6mon follow-up w/labs Crisis Intervention Counselor Required: No Accompanied by: Spouse Allergies No Known Allergies Allergy (Verified 09/15/25 09:19) Medication List - Last Reconciled 09/15/25 by Perez Montero MD aspirin 81 mg PO DAILY cholecalciferol (vitamin D3) 25 mcg PO DAILY empagliflozin (Jardiance) 25 mg PO DAILY ferrous sulfate 324 mg PO DAILY furosemide 20 mg PO DAILY metformin 1,000 mg PO DAILY midodrine 10 mg PO TID fcdzqdcpsthq-gshilnzd-oqbkif 1 tab PO DAILY ondansetron 4 mg PO BID PRN pantoprazole 40 mg PO DAILY penicillin V potassium 500 mg PO BID rosuvastatin 20 mg PO DAILY spironolactone 50 mg PO BID vitamins A,C,C-xlkd-ltqjyk 2,148 mcg-113 mg-45 mg-17.4mg (PreserVision AREDS) 2 tabs PO ONCE HPI Comments Details: History of Present Illness The patient is a 75-year-old male presenting for nephrology follow-up. He has been dealing with an abdominal infection, described as cellulitis, for a while. There is a concern that this infection is related to a surgical mesh that was previously placed. Past treatments for the infection included two different oral antibiotics which were ineffective. He is currently taking penicillin. The patient is scheduled to see an infectious disease specialist today for further management. The patient's medication regimen includes spironolactone, furosemide, Jardiance, and rosuvastatin 20 mg. His metformin dose was recently reduced to 1000 mg once daily out of concern for his kidneys, and his midodrine was reduced to twice daily by his manager beverage. His rosuvastatin dose was also lowered due to elevated liver enzymes that occurred after the anesthesia for his mesh surgery. Results - Labs from 09/13: - Hemoglobin: 9.9 g/dL, improved from a previous value of 9.5 g/dL. - Creatinine: 1.2 mg/dL, improved from a previous value of 1.7 mg/dL. - Potassium: 5.5 mEq/L, which is elevated. - Liver Enzymes: AST and ALT remain elevated. [facility] Medical History (Updated 03/03/25 @ 09:12 by Perez Montero MD) Hypertension Heart disease Diabetes Abnormal colonoscopy Encounter for colonoscopy following colon polyp removal Surgical History History of hernia surgery (~12/2024) History of cataract removal with insertion of prosthetic lens S/P vascular bypass Family History Mother No problems noted. Father Heart disease Physical Exam Exam Exam: Physical Exam General: Awake. Comfortable. HENT: Neck supple. Mucosa moist. Pulmonary: Lungs aeration equal. No rales. Cardiology: Heart S1-S2 heard. No gallop. Abdomen: Soft. Bowel sounds normal. Anterior abd wall- Erythema and tender, warm Neurologic: No involuntary movements. No myoclonus. Extremities: No edema. No rash. Vital Signs: Last Vital Signs Pulse 88 09/15/25 09:17 BP 110/60 09/15/25 09:17 Pulse Ox 98 09/15/25 09:17 Oxygen Delivery Method Room Air 09/15/25 09:17 BMI result Body Mass Index 22.8 Comfortable Neck supple no JVD. Lungs entry equal no rales. Heart S1-S2 heard no gallop or rub. Abdomen soft ;Distended; Fluid thrill + Umbilical hernia- reducible Neuro alert awake oriented. No asterixis. Extremities trace edema. Results Reviewed Results Reviewed: REcent C 1.14 in February 2025 HgB 9.1 Assessment & Plan Assessment & Plan (1) MARIBELL (acute kidney injury): Code(s): N17.9 - Acute kidney failure, unspecified Category: Medical Plan: Due To hypoperfusion MARIBELL has resolved. Creatinine is back to 1.1 to 1.2 (2) Hypotension: Code(s): I95.9 - Hypotension, unspecified Category: Medical Plan: Hypotension in the setting of cirrhosis. He probably has peripheral vasodilatation. Keep Midodrine serum cortisol levels is normal Continues to have orthostatic change, I shall continue midodrine 2.5 mg to elevate his blood pressure. We will titrate the dose as needed. He will benefit from GUZMAN stockings and had an elevation (3) Cirrhosis: Code(s): K74.60 - Unspecified cirrhosis of liver Category: Medical Plan: Currently off alcohol. Keep spironolactone and furosemide Paracenthesis as needed NH3 was 146 in January 2025- On Lactulose Avoid constipation (4) Anemia: Code(s): D64.9 - Anemia, unspecified Category: Medical Plan: Multifactorial HgB down to 9.1 SPEP shows polyclonal gammopathy Follow with PCP Plan Plan 1. Abdominal Cellulitis, Suspected Secondary To Mesh Infection - The patient's abdominal cellulitis has not responded to two prior courses of oral antibiotics and he is now on penicillin. - There is a high suspicion for an underlying infection of his surgical mesh. - The patient has an appointment with an infectious disease specialist today. - It is anticipated that he may require hospitalization for intravenous antibiotics, given the failure of oral therapy. - If IV antibiotics are not effective, surgical removal of the infected mesh may be considered, although this procedure carries significant risk for the patient. 2. Chronic Kidney Disease And Hyperkalemia - Recent labs show an improvement in renal function, with creatinine decreasing from 1.7 to 1.2 mg/dL. - However, serum potassium is elevated at 5.5 mEq/L, which may be related to his spironolactone prescription and dietary intake. - No changes will be made to his spironolactone at this time. - The patient's caregiver was educated to limit high-potassium foods such as Atkins drinks, bananas, nuts, tomatoes, and potatoes. 3/ Low BP On Midodrine No change in dosage Orders: Orders Complete Blood Count no Diff 4 Months K74.60 - Unspecified cirrhosis of liver, N17.9 - Acute kidney failure, unspecified Comprehensive Met. Panel 4 Months K74.60 - Unspecified cirrhosis of liver, N17.9 - Acute kidney failure, unspecified Coding Level of Care Code Est Pt Level 4 (13336) Diagnoses MARIBELL (acute kidney injury) N17.9 Hypotension I95.9 Cirrhosis K74.60 Anemia D64.9
== END 2025-09-15 09:47 | disposition home or self-care (01) ==
LOC: HO.HKAS 09:06
PROVIDERS: PCP Internal Medicine; Visit Provider Internal Medicine Hypertension Specialist
DX: N17.9 Acute kidney failure, unspecified (principal); I95.9 Hypotension, unspecified; K74.60 Unspecified cirrhosis of liver; D64.9 Anemia, unspecified
CPT/HCPCS: 99214